=== PATIENT | female | born 1940 | race Caucasian/White ===

== ENCOUNTER 2021-03-28 09:00 | Emergency (ER) | payer MEDICARE ==
[~2021-03-28] VITALS: Ht 160 cm; Wt 68.0 kg
[2021-03-28] MEDS ORDERED: METOPROL TAR25 M1 PO (09:32)
[2021-03-28] MEDS ORDERED: MOTRIN800 MG PO (09:32)
[2021-03-28] MEDS ORDERED: SIMVASTATIN20 M1 PO (09:33)
[2021-03-28] MEDS ORDERED: TIZANIDINE4 MG PO (09:33)
[2021-03-28] MEDS ORDERED: PROTONIX40 M2 PO (09:33)
[2021-03-28] MEDS ORDERED: VITAMIN C1000 MG PO (09:34)
[2021-03-28] MEDS ORDERED: DOCUSATE SO1 PO (09:35)
[2021-03-28] MEDS ORDERED: [UNRECOGNIZED DRUG - OTHER] PO (09:35)
[2021-03-28] MEDS ORDERED: MULTIVITAMIN1 TA1 PO (09:35)
[2021-03-28] MEDS ORDERED: TYLENOL PM PO (09:36)
[2021-03-28] MEDS ORDERED: ASPIRIN 81 LOW81 MG PO (09:36)
[2021-03-28 09:54] LABS: HEMATOCRIT 40.3 % (37.0-47.0); HEMOGLOBIN 13.2 g/dl (12.0-16.0); IMMATURE GRANULOCYTES 0.1 % (0.0-5.0); MEAN CELL VOLUME 96.2 fL CALC (80.0-100.0); MEAN CORPUSCULAR HGB 31.5 pG CALC (26.0-32.0); MEAN CORPUSCULAR HGB CONC 32.8 g/dL CAL (32.0-36.0); NEUT# 8.19 thou/uL (2.00-7.15); RED BLOOD COUNT 4.19 mill/uL (4.20-5.60); RED CELL DISTRI WIDTH 13.2 % (11.5-15.5)
[2021-03-28 10:21] LABS: PROTHROMBIN TIME 10.4 SECONDS (9.0-12.5)
[2021-03-28 10:24] LABS: ALBUMIN 4.3 g/dL (3.2-5.0); ALKALINE PHOSPHATASE 65 u/l (38-126); ANION GAP 11 (6-22 (CALC)); BILIRUBIN, TOTAL 0.6 mg/dL (0.0-1.4); BUN 14 mg/dL (8-23); BUN/CREATININE RATIO 21 (12-20 (CALC)); CARBON DIOXIDE 27 mmol/l (22-30); CHLORIDE 102 mmol/l (95-108); CREATININE 0.7 mg/dL (0.5-1.0); GFR > 60 ML/MIN (>=60 (CALC)); GFR FOR AFR.AMER. > 60 ML/MIN (>=60 (CALC)); POTASSIUM 4.3 mmol/l (3.5-5.1); SGOT/AST 32 u/l (9-36); SODIUM 135 mmol/l (137-146); TOTAL PROTEIN 7.3 g/dL (6.3-8.2)
[2021-03-28 12:17] VITALS: BP 157/89
== END 2021-03-28 12:19 | disposition home or self-care (01) | DRG 312 ==
LOC: ED 09:00 → ED-I 11:09 → ED 12:19
PROVIDERS: Family Medicine
DX: R55 Syncope and collapse (principal); I10 Essential (primary) hypertension; E78.5 Hyperlipidemia, unspecified; K21.9 Gastro-esophageal reflux disease without esophagitis
CPT/HCPCS: Q9967